=== PATIENT | male | born 1990 | race African-American/Black ===

== ENCOUNTER 2018-03-15 22:03 | Emergency (ER) | payer SELFPAY ==
[2018-03-15 23:05] VITALS: BP 137/92
[2018-03-16] MEDS ORDERED: IBUPROFEN 600 MG TABLET PO ONE (00:39)
[2018-03-16] MEDS ORDERED: DIPHENHYDRAMINE HCL 25 MG CAPSULE PO ONE (00:39)
--- NOTE | 2018-03-16 00:40 | ER Document Report ---
HPI - HPI Pain Level: 2 Context: Patient is a 27-year-old male who presents emerged department with a chief complaint of insect bite. Patient states that he felt either mosquito or a spider bit him in between his shoulder blades at the base of his neck. States that this started but earlier today. Otherwise he denies any rash, difficulty swallowing, difficulty breathing denies any known allergies - CONSTITUTIONAL Constitutional: DENIES: Fever, Chills - EENT EENT: DENIES: Sore Throat, Ear Pain, Eye problems - NEURO Neurology: DENIES: Headache, Weakness, Vision blurred, Dizzinesss / Vertigo - CARDIOVASCULAR Cardiovascular: DENIES: Chest pain - RESPIRATORY Respiratory: DENIES: Trouble Breathing, Coughing - GASTROINTESTINAL Gastrointestinal: DENIES: Abdominal Pain, Black / Bloody Stools - URINARY Urinary: DENIES: Dysuria, Urgency, Frequency - MUSCULOSKELETAL Musculoskeletal: DENIES: Extremity pain Past Medical History - Social History Smoking Status: Unknown if Ever Smoked Family History: Reviewed & Not Pertinent Patient has suicidal ideation: No Patient has homicidal ideation: No Renal/ Medical History: Denies: Hx Peritoneal Dialysis Vertical Provider Document - CONSTITUTIONAL Agree With Documented VS: Yes Notes: PHYSICAL EXAM GENERAL: Alert, interacts well. HEAD: Normocephalic, atraumatic. EYES: Pupils equal, round, and reactive to light. Extraocular movements intact. ENT: Oral mucosa moist, tongue midline. NECK: Full range of motion. Supple. Trachea midline. LUNGS: Clear to auscultation bilaterally, no wheezes, rales, or rhonchi. No respiratory distress. HEART: Regular rate and rhythm. No murmurs, gallops, or rubs. NEUROLOGICAL: Alert and oriented x4. Normal speech. PSYCH: Normal affect, normal mood. SKIN: Warm, dry, normal turgor. Patient has a small erythematous flat area on the posterior thoracic spine left of midline that is nontender, without induration or tenderness no evidence of a puncture wound or wheal. - INFECTION CONTROL TRAVEL OUTSIDE OF THE [place] IN LAST 30 DAYS: No Course - Re-evaluation Re-evalutation: 03/16/18 00:39 Patient presents after an insect bite. Presents as a localized mild reaction without any associated allergic reaction. There is no concern for infection at this time. Will treat with antihistamines and discharge patient home with strict return precautions and follow-up instructions - Vital Signs Vital signs: Temp Pulse Resp BP Pulse Ox 98.5 F 48 L 18 137/92 H 99 03/15/18 23:04 03/15/18 23:04 03/15/18 23:04 03/15/18 23:04 03/15/18 23:04 Discharge - Discharge Clinical Impression: Insect bite Qualifiers: Encounter type: initial encounter Qualified Code(s): W57.XXXA - Bitten or stung by nonvenomous insect and other nonvenomous arthropods, initial encounter Condition: Good Disposition: HOME, SELF-CARE Instructions: Insect Bites ([facility]), OTC Antihistamines ([facility]) Forms: Return to Work
== END 2018-03-16 00:46 | disposition home or self-care (01) ==
LOC: ER 22:03
DX: S10.96XA Insect bite of unspecified part of neck, initial encounter (principal); W57.XXXA Bitten or stung by nonvenomous insect and other nonvenomous arthropods, initial encounter
CPT/HCPCS: 99281

== ENCOUNTER 2018-07-31 07:57 | Inpatient (IN) | payer SELFPAY ==
[2018-07-31] MEDS ORDERED: NORMAL SALINE 1000 ML 1,000 ML IV ONE ×2 (08:31→10:12)
[2018-07-31] MEDS ORDERED: ONDANSETRON HCL INJ/PF 4 MG/2 ML SDV IV ONE (08:31)
--- NOTE | 2018-07-31 08:36 | ER Document Report ---
ED GI/ - General TRAVEL OUTSIDE OF THE [place] IN LAST 30 DAYS: No <EMMA AGUIRRE - Last Filed: 07/31/18 18:05> <KYLER ESCALERA - Last Filed: 07/31/18 18:39> - General Chief Complaint: Abdominal Pain Stated Complaint: ABDOMINAL PAIN Time Seen by Provider: 07/31/18 08:21 Notes: Patient is a 27-year-old male presenting to the emergency department complaining of umbilical abdominal pain. Patient states pain started last night along with vomiting x4 nonbloody nonbilious, diarrhea x2 also denying blood. Patient states he is unsure if the abdominal pain started first or the nausea vomiting diarrhea started first. Patient also admits to a subjective fever. Patient denies URI symptoms. Patient denies dysuria, penile discharge, redness or swelling to bilateral testicles. Patient denies chest pain, shortness of breath. Patient states he does not have a primary care provider and has not seen a doctor since he was a child. Past medical history none Medications none Allergies none Surgical history none (EMMA AGUIRRE) - Related Data Allergies/Adverse Reactions: No Known Allergies Allergy (Verified 07/31/18 08:00) Past Medical History - General Information source: Patient - Social History Smoking Status: Unknown if Ever Smoked Lives with: Family Family History: Reviewed & Not Pertinent Renal/ Medical History: Denies: Hx Peritoneal Dialysis <EMMA AGUIRRE - Last Filed: 07/31/18 18:05> Review of Systems - Review of Systems Constitutional: See HPI EENT: See HPI Cardiovascular: See HPI Respiratory: See HPI Gastrointestinal: See HPI Genitourinary: See HPI Male Genitourinary: See HPI Musculoskeletal: No symptoms reported Skin: No symptoms reported Hematologic/Lymphatic: No symptoms reported Neurological/Psychological: No symptoms reported <EMMA AGUIRRE - Last Filed: 07/31/18 18:05> Physical Exam <EMMA AGUIRRE - Last Filed: 07/31/18 18:05> <KLYER ESCALERA - Last Filed: 07/31/18 18:39> - Vital signs Vitals: Temp Pulse Resp BP Pulse Ox 97.4 F 82 18 143/95 H 100 07/31/18 08:01 07/31/18 08:01 07/31/18 08:01 07/31/18 08:01 07/31/18 08:01 - Notes Notes: GENERAL: Alert, interacts well. No acute distress. HEAD: Normocephalic, atraumatic. EYES: Pupils equal, round, and reactive to light. Extraocular movements intact. ENT: Oral mucosa moist, tongue midline. NECK: Full range of motion. Supple. Trachea midline. LUNGS: Clear to auscultation bilaterally, no wheezes, rales, or rhonchi. No respiratory distress. HEART: Regular rate and rhythm. No murmur ABDOMEN: Soft, Non-distended. Bowel sounds present in all 4 quadrants. Generalized pain periumbilical and epigastric. No Mitchell sign, no McBurney's point tenderness. Bilateral testicles non-erythematous, nonswollen, nonpainful. Penis circumcised no active discharge at meatus. EXTREMITIES: Moves all 4 extremities spontaneously. No edema, normal radial and dorsalis pedis pulses bilaterally. No cyanosis. BACK: no cervical, thoracic, lumbar midline tenderness. No saddle anesthesia, normal distal neurovascular exam. No CVA tenderness bilaterally. NEUROLOGICAL: Alert and oriented x3. Normal speech. cranial nerves II through XII grossly intact. PSYCH: Normal affect, normal mood. SKIN: Warm, dry, normal turgor. No rashes or lesions noted. (EMMA AGUIRRE) Course - Laboratory Result Diagrams: 07/31/18 08:45 07/31/18 09:30 <EMMA AGUIRRE - Last Filed: 07/31/18 18:05> - Laboratory Result Diagrams: 07/31/18 08:45 07/31/18 09:30 <KYLER ESCALERA - Last Filed: 07/31/18 18:39> - Re-evaluation Re-evalutation: 07/31/18 10:12 Reviewed patient's labs, elevation in kidney function, will give another liter fluid bolus. Upon abdominal reevaluation patient now has pain right upper quadrant, positive Mitchell sign. Patient continues with no McBurney's point tenderness, no left lower abdominal pain, no CVA tenderness. patient states he has not vomited since arrival to the emergency room but is still 10 out of 10 pain. 07/31/18 10:55 Patient was about to be brought to ultrasound when he requested to speak to me. Patient now states his pain is more umbilical and right lower quadrant. Patient states he is also having pain in his lower back. Patient continues to deny dysuria, hematuria or history of kidney stones. Patient also denying pain in his groin. Upon abdominal reexam patient does in fact have positive McBurney 's point tenderness. Patient no longer has Mitchell sign. Discussed with patient at that time use of CT for imaging modality. Patient states he wishes for a CT and does not want to do an ultrasound anymore. Discussed the radiation risks as well and patient continues to state he wants a CT. 07/31/18 12:[address], labs and UA with Dr. Luis Escalera who suggests admission for acute renal failure, perinephric stranding, proteinuria, hematuria. Due to [place] not having nephrology, recommends transfer to [facility] or [facility]. Discussed options with patient who requests transfer to [facility]. 07/31/18 13:[address] Carroll Anders at [facility] who stated should the patient be transferred to [facility] he would not get a nephrology consult. States I should discuss this case with the admitting physician at [facility] for admission. 07/31/18 13:[address] Dk Hines who agrees patient should be admitted for acute renal failure. Will see patient in emergency department. Patient states his pain has since resolved. Current heart rate 60, blood pressure 128/84, respiratory rate 14, SPO2 100% on room air no work of breathing. (EMMA AGUIRRE) 07/31/18 18:38 I independently evaluated this patient. He was resting comfortably and in no acute distress. Patient's lab work showed acute renal failure and he had perinephric stranding on CT scan. Patient has no history of renal failure in the past. Patient's urinalysis was negative for infection. The CT results were concerning for a new nephropathy. Because we did not have a hazardous substances scientist on-call I recommended consulting at an outside facility. [facility] did not feel patient needed a nephrology evaluation. Case was also discussed with Dr. Hines who is comfortable admitting the patient for further evaluation of his renal failure which may be related to his persistent vomiting. Patient admitted in stable condition (KYLER ESCALERA) - Vital Signs Vital signs: Temp Pulse Resp BP Pulse Ox 98.5 F 59 L 12 135/94 H 100 07/31/18 18:19 07/31/18 18:19 07/31/18 18:19 07/31/18 18:19 07/31/18 18:19 - Laboratory Laboratory results interpreted by me: 07/31/18 07/31/18 07/31/18 08:45 09:30 09:30 WBC 13.7 H MCV 99 H RDW 14.3 H Seg Neuts % (Manual) 90 H Lymphocytes % (Manual) 5 L Abs Neuts (Manual) 12.3 H Creatinine 1.94 H Est GFR ( Amer) 51 L Est GFR (Non-Af Amer) 42 L ALT 20 L Creatine Kinase 2593 H Total Protein 6.2 L Urine Protein Urine Blood Protein/Creatinin Ratio Urine Total Protein 07/31/18 07/31/18 09:54 09:54 WBC MCV RDW Seg Neuts % (Manual) Lymphocytes % (Manual) Abs Neuts (Manual) Creatinine Est GFR ( Amer) Est GFR (Non-Af Amer) ALT Creatine Kinase Total Protein Urine Protein 100 H Urine Blood SMALL H Protein/Creatinin Ratio 1.7 H Urine Total Protein 74.2 H Discharge - Discharge Admitting Provider: Hospitalist - Dr. Root Onime Unit Admitted: Medical Floor <EMMA AGUIRRE - Last Filed: 07/31/18 18:05> <KYLER ESCALERA - Last Filed: 07/31/18 18:39> - Discharge Clinical Impression: Acute renal injury Proteinuria Qualifiers: Proteinuria type: isolated Isolated proteinuria type: without specific morphologic lesion Qualified Code(s): R80.0 - Isolated proteinuria Hematuria Qualifiers: Hematuria type: unspecified type Qualified Code(s): R31.9 - Hematuria, unspecified Vomiting Qualifiers: Vomiting type: unspecified Vomiting Intractability: non-intractable Nausea presence: with nausea Qualified Code(s): R11.2 - Nausea with vomiting, unspecified Diarrhea Qualifiers: Diarrhea type: unspecified type Qualified Code(s): R19.7 - Diarrhea, unspecified Condition: Stable Disposition: ADMITTED INPATIENT
[2018-07-31 09:06] LABS: HEMATOCRIT 45.4 % (37.9-51.0); HEMOGLOBIN 15.3 g/dL (13.5-17.0); MEAN CORPUSCULAR HGB CONC 33.6 g/dL (32.0-36.0); MEAN CORPUSCULAR VOLUME 99 fl (80-97); PLATELET COUNT 200 10^3/uL (150-450); RED BLOOD COUNT 4.61 10^6/uL (4.35-5.55); RED CELL DISTRIBUTION WIDTH 14.3 % (11.5-14.0); WHITE BLOOD COUNT 13.7 10^3/uL (4.0-10.5)
[2018-07-31 09:25] LABS: ABSOLUTE LYMPHOCYTES# (MANUAL) 0.7 10^3/uL (0.5-4.7); ABSOLUTE MONOCYTES # (MANUAL) 0.7 10^3/uL (0.1-1.4); ABSOLUTE NEUTROPHILS# (MANUAL) 12.3 10^3/uL (1.7-8.2); BASOPHILS % (MANUAL) 0 % (0-2); EOSINOPHILS % (MANUAL) 0 % (0-6); LYMPHOCYTES % (MANUAL) 5 % (13-45); MONOCYTES % (MANUAL) 5 % (3-13); PLATELET COMMENT ADEQUATE; RBC MORPHOLOGY COMMENT NORMO-CYTIC/CHROMIC; SEGMENTED NEUTROPHILS % (MAN) 90 % (42-78); TOTAL CELLS COUNTED 100
[2018-07-31 10:04] LABS: ALANINE AMINOTRANSFERASE 20 U/L (21-72); ALBUMIN 3.9 g/dL (3.5-5.0); ALKALINE PHOSPHATASE 55 U/L (38-126); ANION GAP 14 (5-19); ASPARTATE AMINO TRANSFERASE 43 U/L (17-59); BILIRUBIN,DIRECT 0.2 mg/dL (0.0-0.4); BILIRUBIN,TOTAL 1.1 mg/dL (0.2-1.3); BLOOD UREA NITROGEN 13 mg/dL (7-20); CALCIUM 8.8 mg/dL (8.4-10.2); CARBON DIOXIDE 22 mmol/L (22-30); CHLORIDE 104 mmol/L (98-107); GLUCOSE 84 mg/dL (75-110); LIPASE 39.1 U/L (23-300); POTASSIUM 4.3 mmol/L (3.6-5.0); SODIUM 139.6 mmol/L (137-145); TOTAL PROTEIN 6.2 g/dL (6.3-8.2)
[2018-07-31] MEDS ORDERED: KETOROLAC TROMETHAMINE INJ/PF 30 MG/1 ML SDV IV ONE (10:15)
[2018-07-31 10:26] LABS: APPEARANCE,URINE CLEAR; BILIRUBIN,URINE NEGATIVE (NEGATIVE); COLOR,URINE STRAW; GLUCOSE, URINE NEGATIVE (NEGATIVE); KETONES,URINE NEGATIVE (NEGATIVE); LEUKOCYTE ESTERASE,URINE NEGATIVE (NEGATIVE); NITRITE,URINE NEGATIVE (NEGATIVE); PROTEIN,URINE 100 mg/dL (NEGATIVE); URINE SPECIFIC GRAVITY 1.004; UROBILINOGEN,URINE NEGATIVE mg/dL (<2.0)
[2018-07-31] MEDS ORDERED: METOCLOPRAMIDE HCL INJ/PF 10 MG/2 ML SDV IV ONE (11:26)
--- NOTE | 2018-07-31 12:10 | RADIOLOGY REPORT (SQ) ---
EXAM DESCRIPTION: CT ABD/PELVIS WITH IV ONLY COMPLETED DATE/TIME: 07/31/2018 11:51 am REASON FOR STUDY: Vomiting, periumbilical abdominal pain COMPARISON: None. TECHNIQUE: CT scan of the abdomen and pelvis performed using helical scanning technique with dynamic intravenous contrast injection. No oral contrast. Images reviewed with lung, soft tissue, and bone windows. Reconstructed coronal and sagittal MPR images reviewed. Delayed images for evaluation of the urinary system also acquired. All images stored on PACS. All CT scanners at this facility use dose modulation, iterative reconstruction, and/or weight based d osing when appropriate to reduce radiation dose to as low as reasonably achievable (ALARA). [facility]: Dose Right [facility]: CareDose [facility]: Dose Right [facility]: Teradose 4D [facility]: [id number] CONTRAST TYPE AND DOSE: contrast/concentration: Isovue 300.00 mg/ml; Total Contrast Delivered: 50.0 ml; Total Saline Delivered: 68.0 ml 15 mL IV of Omnipaque 300- low osmolar. RENAL FUNCTION: BUN 13 creatinine 1.94 RADIATION DOSE: . LIMITATIONS: Suboptimal timing of contrast bolus. FINDINGS: LOWER CHEST: No significant findings. No nodules or infiltrates. LIVER: Normal size. No masses. No dilated ducts. SPLEEN: Normal size. No focal lesions. PANCREAS: No masses. No significant calcifications. No adjacent inflammation or peripancreatic fluid collections. Pancreatic duct not dilated. GALLBLADDER: No identified stones by CT criteria. No inflammatory changes to suggest cholecystitis. ADRENAL GLANDS: No significant masses or asymmetry. RIGHT KIDNEY AND URETER: Perinephric fat stranding. No solid masses. No significant calcification s. No hydronephrosis or hydroureter. Contrast is seen opacifying the right ureter on delayed image s without filling defects. LEFT KIDNEY AND URETER: Perinephric fat stranding. No solid masses. No significant calcifications . No hydronephrosis or hydroureter. A small amount of contrast is seen opacifying the proximal lef t ureter on delayed images without filling defects of the opacified portion. AORTA AND VESSELS: No aneurysm. No dissection. Renal arteries, SMA, celiac without stenosis. RETROPERITONEUM: No retroperitoneal adenopathy, hemorrhage or masses. BOWEL AND PERITONEAL CAVITY: No masses or inflammatory changes. No free fluid or peritoneal masses. APPENDIX: Normal. PELVIS: No mass. No free fluid. Normal bladder. ABDOMINAL WALL: No masses. No hernias. BONES: No significant or acute findings. OTHER: No other significant finding. IMPRESSION: Symmetric bilateral perinephric fat stranding which may represent pyelonephritis, amongs t other etiologies. Correlate clinically. TECHNICAL DOCUMENTATION: JOB ID: [id number] Quality ID # [id number]: Final reports with documentation of one or more dose reduction techniques (e.g., Au tomated exposure control, adjustment of the mA and/or kV according to patient size, use of iterative reconstruction technique) 2010 [employer]- All Rights Reserved Reading location - IP/workstation name: [email or web address]
[2018-07-31] MEDS ORDERED: IPRATROPIUM/ALBUTEROL 0.5-2.5 MG/3 ML AMPUL NEB PRN (14:18)
[2018-07-31] MEDS ORDERED: NORMAL SALINE 1000 ML 1,000 ML IV PRN (14:18)
[2018-07-31] MEDS ORDERED: ACETAMINOPHEN 650 MG SUPP.RECT PR PRN (14:18)
[2018-07-31] MEDS ORDERED: PROMETHAZINE HCL 25 MG SUPP.RECT PR PRN (14:29)
[2018-07-31] MEDS ORDERED: DEXTROSE 50%-WATER 25 GM/50 ML DISP.SYRIN IV PRN ×2 (14:29)
[2018-07-31] MEDS ORDERED: ONDANSETRON HCL INJ/PF 4 MG/2 ML SDV IV PRN (14:29)
[2018-07-31] MEDS ORDERED: DEXTROSE 40% GEL 15 GM TUBE PO PRN ×2 (14:29)
[2018-07-31] MEDS ORDERED: MAG HYDROX/AL HYDROX/SIMETH SUSP 30 ML UDCUP PO PRN (14:29)
[2018-07-31] MEDS ORDERED: GLUCAGON,HUMAN RECOMB 1 MG INJ SUBCUT PRN (14:29)
--- NOTE | 2018-07-31 14:49 | PDOC H&P ---
History of Present Illness Admission Date/PCP: 07/31/18 13:59 History of Present Illness: UMU CARDENAS is a 27 year old male without significant past medical history who presented to the emergency department today with a complaint of nausea, vomiting, diarrhea beginning at 7 PM last night. He reports that he felt well yesterday afternoon, no sick contacts, no suspicious foods. He reports that he has had 2 episodes of diarrhea and several episodes of emesis; stating is unable to tolerate p.o. fluids at this time. He reports subjective fever, but did not take his temperature. He reports right lower back pain; indicating the sacroiliac joint with his hand. Evaluation in the emergency department reveals mild leukocytosis with a WBC of 13.7, LARRY (Cr 1.94, BUN 13, eGFR 51), and CT ABD/Pelvis demonstrating symmetric bilateral perinephric fat stranding; no stones or hydronephrosis observed. He is referred to the hospitalist for observational admission and management of LARRY. Past Medical History Cardiac Medical History: Reports: None Pulmonary Medical History: Reports: None EENT Medical History: Reports: None Neurological Medical History: Reports: None Endocrine Medical History: Reports: None Renal/ Medical History: Reports: None Malignancy Medical History: Reports: None GI Medical History: Reports: None Musculoskeltal Medical History: Reports: None Skin Medical History: Reports: None Psychiatric Medical History: Reports: Tobacco Dependency Traumatic Medical History: Reports: None Hematology: Reports: None Infectious Medical History: Reports: None Past Surgical History Past Surgical History: Reports: None Social History Information Source: Patient Lives with: Family Smoking Status: Current Every Day Smoker Cigarettes Packs Per Day: 0.5 Frequency of Alcohol Use: Occasional Hx Recreational Drug Use: No Hx Prescription Drug Abuse: No - Advance Directive Resuscitation Status: Full Code Surrogate healthcare decision maker:: The patient's mother. Family History Family History: None, Reviewed & Not Pertinent Parental Family History Reviewed: Yes Children Family History Reviewed: Yes Sibling(s) Family History Reviewed.: Yes Medication/Allergy Allergies/Adverse Reactions: No Known Allergies Allergy (Verified 07/31/18 08:00) Review of Systems Constitutional: ABSENT: chills, fever(s), headache(s), weight gain, weight loss Eyes: ABSENT: visual disturbances Ears: ABSENT: hearing changes Cardiovascular: ABSENT: chest pain, dyspnea on exertion, edema, orthropnea, palpitations Respiratory: ABSENT: cough, hemoptysis Gastrointestinal: PRESENT: abdominal pain, nausea, vomiting. ABSENT: constipation, diarrhea, hematemesis, hematochezia Genitourinary: ABSENT: dysuria, hematuria Musculoskeletal: PRESENT: back pain. ABSENT: joint swelling Integumentary: ABSENT: rash, wounds Neurological: ABSENT: abnormal gait, abnormal speech, confusion, dizziness, focal weakness, syncope Psychiatric: ABSENT: anxiety, depression, homidical ideation, suicidal ideation Endocrine: ABSENT: cold intolerance, heat intolerance, polydipsia, polyuria Hematologic/Lymphatic: ABSENT: easy bleeding, easy bruising Physical Exam Vital Signs: Temp Pulse Resp BP Pulse Ox 97.4 F 82 13 128/84 H 98 07/31/18 08:01 07/31/18 08:01 07/31/18 13:01 07/31/18 13:01 07/31/18 13:01 General appearance: PRESENT: no acute distress, well-developed, well-nourished Head exam: PRESENT: atraumatic, normocephalic Eye exam: PRESENT: conjunctiva pink, EOMI, PERRLA. ABSENT: scleral icterus Ear exam: PRESENT: normal external ear exam Mouth exam: PRESENT: moist, tongue midline Neck exam: ABSENT: carotid bruit, JVD, lymphadenopathy, thyromegaly Respiratory exam: PRESENT: clear to auscultation michelle, symmetrical, unlabored. ABSENT: rales, rhonchi, wheezes Cardiovascular exam: PRESENT: RRR, +S1, +S2. ABSENT: diastolic murmur, rubs, systolic murmur Pulses: PRESENT: normal dorsalis pedis pul Vascular exam: PRESENT: normal capillary refill GI/Abdominal exam: PRESENT: normal bowel sounds, soft, tenderness - Periumbilical and epigastric pain.. ABSENT: distended, guarding, mass, organolmegaly, rebound Rectal exam: PRESENT: deferred Extremities exam: PRESENT: full ROM. ABSENT: calf tenderness, clubbing, pedal edema Neurological exam: PRESENT: alert, awake, oriented to person, oriented to place , oriented to time, oriented to situation, CN II-XII grossly intact. ABSENT: motor sensory deficit Psychiatric exam: PRESENT: appropriate affect, normal mood. ABSENT: homicidal ideation, suicidal ideation Skin exam: PRESENT: dry, intact, warm. ABSENT: cyanosis, rash Results Impressions: Abdomen/Pelvis CT 07/31/18 10:55 IMPRESSION: Symmetric bilateral perinephric fat stranding which may represent pyelonephritis, amongst other etiologies. Correlate clinically. Assessment & Plan - Diagnosis (1) Acute renal injury Is this a current diagnosis for this admission?: Yes Plan: The patient presented with a complaint of 1 day of nausea vomiting and diarrhea. Reports that he is intolerant of p.o. fluids at this time. Creatinine was noted to be elevated to 1.94; no known baseline. Unlikely to be prerenal as his BUN is normal at 13, blood pressures are normal, not tachycardic, and appears euvolemic on exam. CT of the abdomen and pelvis revealed bilateral perinephric stranding without stones or hydronephrosis; no other acute findings. Creatinine kinase, urine creatinine, urine sodium are pending. Serum EtOH and urine drug screen pending. The patient is admitted to the medical floor. He is already received 2 L IV fluid bolus. He is placed on continued IV maintenance fluids. N.p.o. with the exception of ice chips. Antiemetics as needed. (2) Diarrhea Qualifiers: Diarrhea type: unspecified type Qualified Code(s): R19.7 - Diarrhea, unspecified Is this a current diagnosis for this admission?: Yes Plan: Patient reports 2 episodes of diarrhea overnight. He denies infectious contacts or suspicious foods. Will obtain stool culture. Supportive care. (3) Vomiting Qualifiers: Vomiting type: unspecified Vomiting Intractability: non-intractable Nausea presence: with nausea Qualified Code(s): R11.2 - Nausea with vomiting, unspecified Is this a current diagnosis for this admission?: Yes Plan: The patient reports onset of nausea with vomiting 7 PM last night. He states he is no longer tolerating p.o. fluids, however, immediately follows up with asking to eat. He denies sick contacts or suspicious meals. He does report subjective fever. He has been afebrile since time of arrival to the emergency department. WBCs mildly elevated at 13.7. Lipase and LFTs are normal. Serum EtOH and urine drug screen is pending. NPO with the exception of ice chips. IV fluids and antiemetics as described above. - Time Time Spent: 30 to 50 Minutes Medications reviewed and adjusted accordingly: Yes Anticipated discharge: Home Within: within 24 hours
[2018-07-31 14:52] LABS: URINE AMPHETAMINES SCREEN NEGATIVE; URINE BARBITURATES SCREEN NEGATIVE; URINE BENZODIAZEPINES SCREEN NEGATIVE; URINE COCAINE SCREEN UNCONFIRMED POSITIVE; URINE MARIJUANA (THC) SCREEN NEGATIVE; URINE METHADONE SCREEN NEGATIVE; URINE PHENCYCLIDINE SCREEN NEGATIVE
[2018-07-31 14:54] LABS: UR PRO/CREAT RATIO RESULT 1.7 mg/mg (0.0-0.2); URINE CREATININE 43.6 mg/dL (24-392); URINE PROTEIN 74.2 mg/dL (<12); URINE SODIUM 64 mmol/L (30-90)
[2018-07-31] MEDS: NICOTINE 14 MG/24 HR PATCH.TD24 TD SCH (18:32)
[2018-07-31] MEDS: ACETAMINOPHEN 325 MG TABLET PO PRN (21:13)
[2018-07-31] MEDS: HEPARIN SOD (PORCINE) 5,000 UNIT/ML 1 ML SYRINGE SUBCUT SCH (21:14)
[2018-08-01] MEDS: ACETAMINOPHEN 325 MG TABLET PO PRN (05:14)
[2018-08-01] MEDS: HEPARIN SOD (PORCINE) 5,000 UNIT/ML 1 ML SYRINGE SUBCUT SCH ×3 (05:16→21:09)
[2018-08-01 06:33] LABS: HEMOGLOBIN 13.7 g/dL (13.5-17.0); MEAN CORPUSCULAR HEMOGLOBIN 33.5 pg (27.0-33.4); MEAN CORPUSCULAR HGB CONC 34.1 g/dL (32.0-36.0); MEAN CORPUSCULAR VOLUME 98 fl (80-97); PLATELET COUNT 153 10^3/uL (150-450); RED BLOOD COUNT 4.07 10^6/uL (4.35-5.55); RED CELL DISTRIBUTION WIDTH 14.1 % (11.5-14.0); WHITE BLOOD COUNT 7.3 10^3/uL (4.0-10.5)
[2018-08-01 06:51] LABS: ANION GAP 9 (5-19); BLOOD UREA NITROGEN 14 mg/dL (7-20); CALCIUM 8.3 mg/dL (8.4-10.2); CARBON DIOXIDE 22 mmol/L (22-30); CHLORIDE 111 mmol/L (98-107); GLUCOSE 82 mg/dL (75-110); POTASSIUM 4.4 mmol/L (3.6-5.0); SODIUM 141.6 mmol/L (137-145)
[2018-08-01] MEDS: NICOTINE 14 MG/24 HR PATCH.TD24 TD SCH (09:46)
[2018-08-01] MEDS: PANTOPRAZOLE SODIUM 40 MG VIAL IV SCH (09:46)
[2018-08-01] MEDS: NORMAL SALINE 1000 ML 1,000 ML IV PRN ×2 (12:07→18:52)
--- NOTE | 2018-08-01 15:13 | PDOC PROGRESS REPORT ---
Subjective Progress Note for:: 08/01/18 Subjective:: The patient is a 27-year-old male with a past medical history significant for substance and tobacco abuse with continuous use who was admitted 07/31/18 for rhabdomyolysis, acute kidney injury, nausea and vomiting, secondary to cocaine use. He was seen on morning rounds. He has been resting in bed comfortably on room air. His significant other was asked to leave the room for our conversation. After she left, we discussed his UDS; he did admit to recent cocaine use. He reports continued generalized body aches, however reports that his abdominal discomfort, nausea, vomiting, and diarrhea have all resolved. He requests to have his diet advanced. Otherwise, he has no questions or concerns. No concerns per nursing; requested increased monitoring for strict I&Os Reason For Visit: ACUTE KIDNEY INJURY Physical Exam Vital Signs: Temp Pulse Resp BP Pulse Ox 98.6 F 52 L 16 123/84 100 08/01/18 12:19 08/01/18 12:19 08/01/18 12:19 08/01/18 12:19 08/01/18 12:19 Intake & Output 07/31/18 08/01/18 08/02/18 06:59 06:59 06:59 Intake Total 860 1000 Output Total 825 Balance 35 1000 General appearance: PRESENT: no acute distress, cooperative, thin, well- developed, well-nourished Head exam: PRESENT: atraumatic, normocephalic Eye exam: PRESENT: conjunctiva pink, EOMI, PERRLA. ABSENT: scleral icterus Ear exam: PRESENT: normal external ear exam Mouth exam: PRESENT: moist, tongue midline Neck exam: ABSENT: carotid bruit, JVD, lymphadenopathy, thyromegaly Respiratory exam: PRESENT: clear to auscultation michelle, symmetrical, unlabored. ABSENT: rales, rhonchi, wheezes Cardiovascular exam: PRESENT: RRR, +S1, +S2. ABSENT: diastolic murmur, rubs, systolic murmur Pulses: PRESENT: normal dorsalis pedis pul Vascular exam: PRESENT: normal capillary refill GI/Abdominal exam: PRESENT: normal bowel sounds, soft. ABSENT: distended, guarding, mass, organolmegaly, rebound, tenderness Rectal exam: PRESENT: deferred Extremities exam: PRESENT: full ROM. ABSENT: calf tenderness, clubbing, pedal edema Neurological exam: PRESENT: alert, awake, oriented to person, oriented to place , oriented to time, oriented to situation, CN II-XII grossly intact. ABSENT: motor sensory deficit Psychiatric exam: PRESENT: appropriate affect, normal mood. ABSENT: homicidal ideation, suicidal ideation Skin exam: PRESENT: dry, intact, warm. ABSENT: cyanosis, rash Results Laboratory Results: 08/01/18 05:20 08/01/18 05:20 08/01/18 08/01/18 05:20 05:20 WBC 7.3 RBC 4.07 L Hgb 13.7 Hct 40.0 MCV 98 H MCH 33.5 H MCHC 34.1 RDW 14.1 H Plt Count 153 Sodium 141.6 Potassium 4.4 Chloride 111 H Carbon Dioxide 22 Anion Gap 9 BUN 14 Creatinine 3.21 H Est GFR ( Amer) 29 L Est GFR (Non-Af Amer) 24 L Glucose 82 Calcium 8.3 L 08/01/18 08/01/18 05:20 09:52 Creatine Kinase Cancelled 3890 H Impressions: Abdomen/Pelvis CT 07/31/18 10:55 IMPRESSION: Symmetric bilateral perinephric fat stranding which may represent pyelonephritis, amongst other etiologies. Correlate clinically. Assessment & Plan - Diagnosis (1) Acute renal failure due to rhabdomyolysis Is this a current diagnosis for this admission?: Yes Plan: Worsened; creatinine is trending up 1.94--> 3.21 Secondary to ATN secondary to cocaine abuse and subsequent development of rhabdomyolysis. CT of the abdomen and pelvis revealed bilateral perinephric stranding without stones or hydronephrosis; no other acute findings. FeNA 2.0%, urine protein/creatinine ratio 1.7 Serum EtOH negative, urine drug screen positive for cocaine. Pt endorses recent use. The patient is admitted to the medical floor. Continue aggressive IV maintenance fluids. Encourage p.o. fluids. Avoid nephrotoxic medications as able. Antiemetics as needed. Daily chemistries. Strict I&Os; discussed with patient and nursing. (2) Diarrhea Qualifiers: Diarrhea type: unspecified type Qualified Code(s): R19.7 - Diarrhea, unspecified Is this a current diagnosis for this admission?: Yes Plan: Resolved. Supportive care. (3) Vomiting Qualifiers: Vomiting type: unspecified Vomiting Intractability: non-intractable Nausea presence: with nausea Qualified Code(s): R11.2 - Nausea with vomiting, unspecified Is this a current diagnosis for this admission?: Yes Plan: Resolved. Leukocytosis is resolved; patient remains afebrile. Lipase and LFTs are normal. He has tolerated a clear liquid diet well; advance to brat. May advance further as tolerated. IV fluids and antiemetics as described above. (4) Rhabdomyolysis Qualifiers: Rhabdomyolysis type: non-traumatic Qualified Code(s): M62.82 - Rhabdomyolysis Is this a current diagnosis for this admission?: Yes Plan: Secondary to cocaine use and resulting in acute kidney injury. Creatinine kinase trending up 2593--> 3890 Rest. Aggressive IV fluids. Daily chemistries. (5) Substance abuse Is this a current diagnosis for this admission?: Yes Plan: The patient was evasive when providing his social history; did admit to 1/2 pack /day tobacco use, occasional EtOH abuse (last drink approximately 2 months ago) , and rare THC use. Today he does confirm recent cocaine use. UDS positive for cocaine. Supportive care. (6) Continuous tobacco abuse Is this a current diagnosis for this admission?: Yes Plan: Smoking cessation is encouraged; nicotine replacement therapies are provided. (7) ATN (acute tubular necrosis) Is this a current diagnosis for this admission?: Yes Plan: Secondary to cocain use; plan as above. - Time Time Spent with patient: 15-24 minutes Medications reviewed and adjusted accordingly: Yes Anticipated discharge: Home - Inpatient Certification Based on my medical assessment, after consideration of the patient's comorbidities, presenting symptoms, or acuity I expect that the services needed warrant INPATIENT care.: Yes I certify that my determination is in accordance with my understanding of Medicare's requirements for reasonable and necessary INPATIENT services [42 CFR 412.3e].: Yes Medical Necessity: Need For IV Fluids, Risk of Complication if Not Cared For in Hospital
[2018-08-02] MEDS: NORMAL SALINE 1000 ML 1,000 ML IV PRN ×2 (00:21→11:24)
[2018-08-02] MEDS: HEPARIN SOD (PORCINE) 5,000 UNIT/ML 1 ML SYRINGE SUBCUT SCH ×3 (05:06→21:27)
[2018-08-02 05:17] LABS: HEMATOCRIT 36.5 % (37.9-51.0); HEMOGLOBIN 12.5 g/dL (13.5-17.0); MEAN CORPUSCULAR HEMOGLOBIN 33.5 pg (27.0-33.4); MEAN CORPUSCULAR HGB CONC 34.1 g/dL (32.0-36.0); MEAN CORPUSCULAR VOLUME 98 fl (80-97); PLATELET COUNT 134 10^3/uL (150-450); RED BLOOD COUNT 3.72 10^6/uL (4.35-5.55); RED CELL DISTRIBUTION WIDTH 14.2 % (11.5-14.0); WHITE BLOOD COUNT 4.5 10^3/uL (4.0-10.5)
[2018-08-02 05:45] LABS: ANION GAP 9 (5-19); BLOOD UREA NITROGEN 13 mg/dL (7-20); CALCIUM 8.2 mg/dL (8.4-10.2); CARBON DIOXIDE 20 mmol/L (22-30); CHLORIDE 114 mmol/L (98-107); GLUCOSE 82 mg/dL (75-110); POTASSIUM 4.3 mmol/L (3.6-5.0); SODIUM 142.8 mmol/L (137-145)
[2018-08-02 05:55] LABS: CREATINE KINASE 2719 U/L (55-170)
[2018-08-02] MEDS: PANTOPRAZOLE SODIUM 40 MG VIAL IV SCH (11:05)
[2018-08-02] MEDS: NICOTINE 14 MG/24 HR PATCH.TD24 TD SCH (11:15)
[2018-08-02] MEDS: ACETAMINOPHEN 325 MG TABLET PO PRN (11:18)
--- NOTE | 2018-08-02 12:46 | PDOC PROGRESS REPORT ---
Subjective Progress Note for:: 08/02/18 Subjective:: No adverse events overnight. No new complaints. Vital signs been stable. Urine output has been excellent. He asked if his diet could be changed to a regular diet. He was up ambulating in the room independently. Reason For Visit: ACUTE KIDNEY FAILURE Physical Exam Vital Signs: Temp Pulse Resp BP Pulse Ox 98.7 F 61 12 141/98 H 99 08/02/18 07:53 08/02/18 07:53 08/02/18 07:53 08/02/18 07:53 08/02/18 07:53 Intake & Output 08/01/18 08/02/18 08/03/18 06:59 06:59 06:59 Intake Total 2000 1000 Output Total 1275 Balance 725 1000 General appearance: PRESENT: no acute distress, cooperative, thin, well- developed, well-nourished Respiratory exam: PRESENT: clear to auscultation michelle, symmetrical, unlabored. ABSENT: rales, rhonchi, wheezes Cardiovascular exam: PRESENT: RRR, +S1, +S2. ABSENT: diastolic murmur, rubs, systolic murmur Pulses: PRESENT: normal dorsalis pedis pul Vascular exam: PRESENT: normal capillary refill GI/Abdominal exam: PRESENT: normal bowel sounds, soft. ABSENT: distended, guarding, mass, organolmegaly, rebound, tenderness Extremities exam: PRESENT: full ROM. ABSENT: calf tenderness, clubbing, pedal edema Neurological exam: PRESENT: alert, awake, oriented to person, oriented to place , oriented to time, oriented to situation Psychiatric exam: PRESENT: appropriate affect, normal mood. ABSENT: homicidal ideation, suicidal ideation Skin exam: PRESENT: dry, intact, warm. ABSENT: cyanosis, rash Results Laboratory Results: 08/02/18 04:45 08/02/18 04:45 08/02/18 08/02/18 04:45 04:45 WBC 4.5 RBC 3.72 L Hgb 12.5 L Hct 36.5 L MCV 98 H MCH 33.5 H MCHC 34.1 RDW 14.2 H Plt Count 134 L Sodium 142.8 Potassium 4.3 Chloride 114 H Carbon Dioxide 20 L Anion Gap 9 BUN 13 Creatinine 2.78 H Est GFR ( Amer) 34 L Est GFR (Non-Af Amer) 28 L Glucose 82 Calcium 8.2 L 08/02/18 04:45 Creatine Kinase 2719 H Impressions: Abdomen/Pelvis CT 07/31/18 10:55 IMPRESSION: Symmetric bilateral perinephric fat stranding which may represent pyelonephritis, amongst other etiologies. Correlate clinically. Assessment & Plan - Diagnosis (1) Acute renal failure due to rhabdomyolysis Is this a current diagnosis for this admission?: Yes Plan: Associated with cocaine use. He is responded well to IV fluids. Creatinine and CPK are both trending down. Continue IV fluids and repeat blood work in the morning. (2) Substance abuse Is this a current diagnosis for this admission?: Yes Plan: Counseled regarding cessation. Declined substance abuse recovery information. - Time Time Spent with patient: 25-34 minutes
[2018-08-03] MEDS: NORMAL SALINE 1000 ML 1,000 ML IV PRN ×2 (03:16→14:06)
[2018-08-03] MEDS: HEPARIN SOD (PORCINE) 5,000 UNIT/ML 1 ML SYRINGE SUBCUT SCH ×3 (05:13→21:26)
--- NOTE | 2018-08-03 11:31 | PROGRESS NOTE E ---
Progress Note NAME: UMU CARDENAS : 1990 AGE: 27Y DATE: 08/03/2018 ROOM: 404 SUBJECTIVE: The patient is currently sitting up in bed. He states that he feels better today in comparison to when he came in. He denies any nausea, vomiting, diarrhea. No shortness of breath, dizziness, or chest pain. No fevers, chills. The patient has been afebrile. Blood pressure has been in a good range. The patient does not voice any other concerns at this time. REVIEW OF SYSTEMS: Rest of review of systems negative. MEDICATIONS: Medications have been reviewed. OBJECTIVE: GENERAL: The patient is a 27-year-old -[place] male who is awake, alert, and oriented to person, place, time, and situation. He is verbal, conversational, does not appear to be in acute distress. VITAL SIGNS: Temperature is 98.2, pulse 46, respirations 16, blood pressure is 149/100, oxygen saturation is 100% on room air. SKIN: Warm and dry. No rash. Not diaphoretic. HEENT: Pupils are reactive. There is no evidence of JVP. CARDIOVASCULAR SYSTEM: Heart is regular. There is no rub. CHEST: Clear, symmetrical, unlabored. ABDOMEN: Nondistended. EXTREMITIES: No cyanosis. No edema. PSYCHIATRIC: Appropriate affect. Pleasant mood. DIAGNOSTICS: Lab values are as follows: Hematology obtained on 08/02/2018: WBCs are 4.5, hemoglobin is 12.5, hematocrit 36.5, platelet count is 134,000. IMPRESSION AND PLAN: 1. RHABDOMYOLYSIS. Will continue to hydrate and repeat CK and follow. 2. ACUTE KIDNEY INJURY SECONDARY TO NUMBER 1 WELL COCAINE USE. Will continue to aggressively hydrate and follow. 3. COCAINE TOXICITY. Patient may have had a renal infraction. Will continue to follow the patient's creatinine and aggressively hydrate. Patient is making excellent urine output and appears to be overall improving. Will monitor labs closely and follow. 4. TOBACCO DEPENDENCY. Continue p.r.n. nicotine patch. 5. SUBSTANCE ABUSE. It appears the patient has been counseled regarding THC, alcohol, tobacco, as well as cocaine. DISPOSITION: The patient is a FULL CODE. Pending patient's symptomatology and diagnostic findings, will re-evaluate in the a.m. Time spent on this followup including assessment, plan, physical examination, patient education, review of records, and family meeting is 25 minutes. DICTATING PHYSICIAN: PEDRO CORCORAN NP [id number] PHY#: [id number] ID: [id number] JOB#: [id number] ACCT: [id number] cc: >
[2018-08-03 13:35] LABS: ANION GAP 10 (5-19); BLOOD UREA NITROGEN 11 mg/dL (7-20); CALCIUM 8.8 mg/dL (8.4-10.2); CARBON DIOXIDE 22 mmol/L (22-30); CHLORIDE 113 mmol/L (98-107); GLUCOSE 86 mg/dL (75-110); POTASSIUM 4.2 mmol/L (3.6-5.0); SODIUM 145.2 mmol/L (137-145)
[2018-08-03] MEDS: NICOTINE 14 MG/24 HR PATCH.TD24 TD SCH (14:05)
[2018-08-03 14:20] LABS: CREATINE KINASE 8665 U/L (55-170)
[2018-08-03] MEDS: PANTOPRAZOLE SODIUM 40 MG VIAL IV SCH (16:30)
--- NOTE | 2018-08-03 18:36 | RADIOLOGY REPORT (SQ) ---
EXAM DESCRIPTION: VENOUS UNILATERAL LOWER COMPLETED DATE/TIME: 08/03/2018 6:29 pm REASON FOR STUDY: RLE edema COMPARISON: None. TECHNIQUE: Dynamic and static turcios scale and color images acquired of the right leg venous system. S elected spectral images acquired with additional compression and augmentation maneuvers. The contrala teral common femoral vein and saphenofemoral junction were also imaged. Images stored on PACS. LIMITATIONS: None. FINDINGS: COMMON FEMORAL: Normal phasicity, compression and augmentation. No visualized echogenic ma terial on turcios scale. No defects on color images. FEMORAL: Normal compression and augmentation. No visualized echogenic material on turcios scale. No defe cts on color images. POPLITEAL: Normal compression, augmentation. No visualized echogenic material on turcios scale. No defec ts on color images. CALF VESSELS: Normal compression, augmentation. No visualized echogenic material on turcios scale. No de fects on color images. GSV and SSV: Normal compression, augmentation. No visualized echogenic material on turcios scale. No def ects on color images. ANY DEEP VENOUS INSUFFICIENCY: Not evaluated. ANY EVIDENCE OF POPLITEAL CYST: No. OTHER: No other significant finding. CONTRALATERAL COMMON FEMORAL VEIN AND SAPHENOFEMORAL JUNCTION: Normal phasicity, compression and augmentation. No visualized echogenic material on turcios scale. No de fects on color images. IMPRESSION: NO EVIDENCE DVT OR SVT IN THE RIGHT LEG. TECHNICAL DOCUMENTATION: JOB ID: [id number] [employer]- All Rights Reserved Reading location - IP/workstation name: [email or web address]
[2018-08-03] MEDS: 1/2 NORMAL SALINE 1,000 ML IV PRN (21:52)
[2018-08-04] MEDS ORDERED: HYDRALAZINE HCL 25 MG TABLET PO ONE (00:45)
[2018-08-04] MEDS: 1/2 NORMAL SALINE 1,000 ML IV PRN ×4 (04:15→23:31)
[2018-08-04] MEDS: HEPARIN SOD (PORCINE) 5,000 UNIT/ML 1 ML SYRINGE SUBCUT SCH ×3 (05:21→21:18)
[2018-08-04 06:32] LABS: ANION GAP 9 (5-19); BLOOD UREA NITROGEN 11 mg/dL (7-20); CALCIUM 8.5 mg/dL (8.4-10.2); CARBON DIOXIDE 23 mmol/L (22-30); CHLORIDE 110 mmol/L (98-107); GLUCOSE 77 mg/dL (75-110); POTASSIUM 3.7 mmol/L (3.6-5.0); SODIUM 141.8 mmol/L (137-145)
[2018-08-04 06:50] LABS: CREATINE KINASE 6460 U/L (55-170)
[2018-08-04] MEDS: NICOTINE 14 MG/24 HR PATCH.TD24 TD SCH (09:55)
[2018-08-04] MEDS: ACETAMINOPHEN 325 MG TABLET PO PRN (10:06)
[2018-08-04] MEDS ORDERED: ONDANSETRON HCL INJ/PF 4 MG/2 ML SDV IV PRN (15:00)
--- NOTE | 2018-08-04 15:56 | PROGRESS NOTE E ---
Progress Note NAME: UMU CARDENAS : 1990 AGE: 27Y DATE: 08/04/2018 ROOM: 404 SUBJECTIVE: The patient is lying in bed. He states he feels okay today. He has had some tightness in his legs. He denies any nausea, vomiting, diarrhea. No shortness of breath, dizziness, or chest pain. No fevers, chills. The patient has been afebrile. Blood pressure has been in a good range. The patient does not voice any other concerns at this time. REVIEW OF SYSTEMS: Rest of review of systems negative. MEDICATIONS: Medications have been reviewed. OBJECTIVE: GENERAL: The patient is a 27-year-old -[place] male who is awake, alert, he is oriented to person, place, time, and situation. He is verbal, conversational, does not appear to be in any acute distress. VITAL SIGNS: Temperature is 98.5, pulse 47, respirations 20, blood pressure is 151/93, oxygen saturation is 100% on room air. SKIN: Warm and dry. No rash. Not diaphoretic. HEENT: Pupils equal, round, and reactive to light and accommodation. Conjunctiva pink. There is no evidence of JVP. CARDIOVASCULAR SYSTEM: Heart is regular. There is no rub. No murmur. CHEST: Clear, symmetrical, unlabored. ABDOMEN: Soft, nontender, nondistended. BACK: No CVA tenderness. EXTREMITIES: No clubbing, cyanosis, or edema. PSYCHIATRIC: Appropriate affect. Pleasant mood. DIAGNOSTICS: Lab values are as follows: Hematology obtained on 08/02/2018: WBCs are 4.5, hemoglobin is 12.5, hematocrit 36.5, platelet count is 134,000. Chemistry obtained on 08/04/2018: Sodium is 141, potassium 4.0, chloride 110, carbon dioxide 22, BUN 11, creatinine 0.69, glucose 77, calcium is 8.5, magnesium is 1.7, CK is 64/60. IMPRESSION AND PLAN: 1. RHABDOMYOLYSIS. Will continue to hydrate. Repeat CK in the a.m. 2. ACUTE KIDNEY INJURY SECONDARY TO NUMBER 1 WELL COCAINE ABUSE. Will continue to aggressively hydrate and follow. 3. COCAINE TOXICITY. Which may have contributed to his renal dysfunction, possible infarction. He does appear to be making a recovery though. We will continue to monitor patient's creatinine and aggressively hydrate. He is making excellent urine output. 4. TOBACCO DEPENDENCY. Will continue p.r.n. nicotine patch. 5. SUBSTANCE ABUSE. The patient was counseled regarding THC, alcohol, tobacco, as well as cocaine. DISPOSITION: The patient is a FULL CODE. Pending patient's symptomatology and diagnostic findings, will re-evaluate in the a.m. Time spent on this followup including assessment, plan, physical examination, patient education, review of records, and family meeting is 25 minutes. DICTATING PHYSICIAN: PEDRO CORCORAN NP [id number] PHY#: [id number] ID: [id number] JOB#: [id number] ACCT: [id number] cc: > MTDD
[2018-08-05] MEDS: HEPARIN SOD (PORCINE) 5,000 UNIT/ML 1 ML SYRINGE SUBCUT SCH ×3 (05:04→22:06)
[2018-08-05 05:22] LABS: ANION GAP 10 (5-19); BLOOD UREA NITROGEN 9 mg/dL (7-20); CALCIUM 8.7 mg/dL (8.4-10.2); CARBON DIOXIDE 25 mmol/L (22-30); CHLORIDE 110 mmol/L (98-107); GLUCOSE 86 mg/dL (75-110); SODIUM 144.6 mmol/L (137-145)
[2018-08-05 05:54] LABS: CREATINE KINASE 4548 U/L (55-170); POTASSIUM 3.9 mmol/L (3.6-5.0)
[2018-08-05] MEDS: 1/2 NORMAL SALINE 1,000 ML IV PRN ×2 (06:50→13:51)
--- NOTE | 2018-08-05 09:47 | PROGRESS NOTE E ---
Progress Note NAME: UMU CARDENAS : 1990 AGE: 27Y DATE: 08/05/2018 ROOM: 404 SUBJECTIVE: The patient is currently sitting in bed. He states that he feels okay. The patient has had no episodes of vomiting nor diarrhea. He has been afebrile. His blood pressures have been in a much more acceptable range. The patient's goal blood pressure at this point is a systolic of 150, and the patient does not voice any other concerns at this time. REVIEW OF SYSTEMS: Rest of review of systems negative. MEDICATIONS: Medications have been reviewed. OBJECTIVE: GENERAL: The patient is a 27-year-old -[place] male who is awake, alert, and oriented to person, place, time, and situation. He is verbal, not too conversational, though, does not appear to be distressed. VITAL SIGNS: Temperature is 98.5, pulse 50, respirations 18, blood pressure 127/82, oxygen saturation is 100% on room air. SKIN: Warm, dry. No rash. Not diaphoretic. HEENT: Pupils are reactive. Conjunctiva is pink. There is no evidence of JVP. CARDIOVASCULAR SYSTEM: Heart is regular. CHEST: Symmetrical, unlabored, clear. ABDOMEN: Nondistended. EXTREMITIES: No edema. PSYCHIATRIC: The patient does have a flat affect. DIAGNOSTICS: Lab values are as follows: Hematology obtained on 08/02/2018: WBCs are 4.5, hemoglobin is 12.5, hematocrit is 36.5, platelet count is 134,000. Chemistry obtained on 08/05/2018: Sodium is 144, potassium 3.9, chloride is 110, carbon dioxide 25, BUN 9, creatinine is 1.42, glucose 86, calcium is 8.7, magnesium is 1.6. CK is 4548. IMPRESSION AND PLAN: 1. RHABDOMYOLYSIS. Continue to hydrate. Repeat CK, creatinine in the a.m. 2. ACUTE KIDNEY INJURY SECONDARY TO NUMBER 1 WELL COCAINE ABUSE. Will continue aggressive hydration and follow chemistries. 3. COCAINE TOXICITY. MOST LIKELY, THIS CONTRIBUTED WITH HIS RENAL DYSFUNCTION, POSSIBLE RENAL INFARCTION, APPEARS TO BE MAKING A RECOVER, THOUGH. Will monitor. He is making excellent urine output. 4. TOBACCO DEPENDENCY. Continue p.r.n. nicotine patch. 5. SUBSTANCE ABUSE. The patient was counseled regarding THC, alcohol, tobacco, as well as cocaine abuse. DISPOSITION: The patient is a FULL CODE. Pending patient's symptomatology and diagnostic findings, will re-evaluate in the a.m. for discharge. Time spent on this followup including assessment, plan, physical examination, patient education, and review of records is 20 minutes. DICTATING PHYSICIAN: PEDRO CORCORAN NP [id number] PHY#: [id number] ID: [id number] JOB#: [id number] ACCT: [id number] cc: >
[2018-08-05] MEDS: NICOTINE 14 MG/24 HR PATCH.TD24 TD SCH (10:54)
[2018-08-06] MEDS: 1/2 NORMAL SALINE 1,000 ML IV PRN ×3 (00:07→09:42)
[2018-08-06 05:34] LABS: ANION GAP 10 (5-19); BLOOD UREA NITROGEN 7 mg/dL (7-20); CALCIUM 8.4 mg/dL (8.4-10.2); CARBON DIOXIDE 27 mmol/L (22-30); CHLORIDE 107 mmol/L (98-107); GLUCOSE 84 mg/dL (75-110); POTASSIUM 3.7 mmol/L (3.6-5.0); SODIUM 143.5 mmol/L (137-145)
[2018-08-06] MEDS: HEPARIN SOD (PORCINE) 5,000 UNIT/ML 1 ML SYRINGE SUBCUT SCH (05:45)
[2018-08-06 05:58] LABS: CREATINE KINASE 2063 U/L (55-170)
[2018-08-06] MEDS: NICOTINE 14 MG/24 HR PATCH.TD24 TD SCH (10:27)
[2018-08-06 12:23] VITALS: BP 132/78
--- NOTE | 2018-08-07 19:51 | DISCHARGE SUMMARY E ---
Discharge Summary NAME: UMU CARDENAS : 1990 AGE: 27Y ADMITTED: 08/01/2018 DISCHARGED: 08/06/2018 CODE STATUS: Full code. PRIMARY CARE PROVIDER: He will be referred to the [facility]. DISCHARGE DIAGNOSES: 1. Rhabdomyolysis. 2. Cocaine toxicity. 3. Acute kidney injury secondary to the above. 4. Tobacco dependency. 5. Substance abuse. 6. Possible hypertension. DISCHARGE MEDICATIONS: None. ALLERGIES: No known drug allergies. ACTIVITY: As tolerated. DIET: As tolerated, continue to consume plenty of fluids. CONDITION: Good. DIAGNOSTICS: Lab values are as follows - Hematology obtained on 08/02/2018; WBC is 4.5, hemoglobin is 12.5, hematocrit is 36.5, platelet count is 134,000. Chemistry obtained on 08/06/2018; sodium is 142, potassium 3.7, chloride is 107, carbon dioxide 27, BUN 7, creatinine is 1.28, glucose 84, calcium is 8.4, magnesium is 1.5. CK is 2063. Total bilirubin is 1.1, AST 43, alt 20, alk-phos 55, total protein 6.2, albumin 3.9. Lipase is 39.1. Urinalysis obtained on 07/31/2018; color straw, appears clear, pH 6.0, specific gravity is 1.004, protein 100, glucose negative, ketones negative, glucose 1, nitrite negative, bilirubin negative, urobilinogen is negative, WBC 1, RBC 1, casts 5, mucus rare, creatinine is 42.6, sodium 54, total protein is 74.2, ascorbic acid is negative. Toxicology obtained on 07/31/2018; cocaine is positive. Microbiology; urine culture obtained on 07/31/2018 reveals no growth. Venous Doppler of the right lower extremity reveals no evidence of DVT or SVT in either leg. PHYSICAL EXAMINATION: GENERAL: On examination the patient is a well-developed, well-nourished, 27-year-old -[place] male who is awake, alert, and oriented to person, place, time, and situation. He is verbal, conversational, ambulatory. He does not appear to be in any acute distress. VITAL SIGNS: Temperature is 98.8, pulse 58, respirations 15, blood pressure is 132/78, oxygen saturation is 99% on room air. SKIN: Warm and dry. No rash. He is not diaphoretic. HEENT: Pupils equal, round, reactive to light and accommodation. Conjunctivae are pink. There is no evidence of JVP. CARDIOVASCULAR: Heart is regular. There is no murmur or rub. CHEST: Clear, symmetrical, unlabored. ABDOMEN: Soft, nontender, nondistended. BACK: No CVA tenderness, no sacral edema. HISTORY OF PRESENT ILLNESS: The patient is a 27-year-old -[place] male with no significant past medical history. The patient presented to the emergency department with a chief complaint of nausea, vomiting which began 12 hours prior to presentation. The patient felt well the afternoon prior with no sick contacts, no suspicious foods. At some point the patient did use crack cocaine. The patient reported that he some emesis when standing and was unable to tolerate fluids at the time. The patient reported subjective fevers, but did not check his temperature. The patient reported some right lower back pain. The patient presented to the emergency department with a white count of 13.7 and acute kidney injury with a creatinine of 1.94 and the patient was referred to the hospitalist for admission and management. HOSPITAL COURSE: The patient was admitted to continuous telemetry unit. The patient was found to be in rhabdomyolysis and was aggressively hydrated. The patient's CK did initially rise as expected and peaked at 8665 and has trended down to 2063. The patient's creatinine trended up, initially it was 1.94, it trended up to 3.21 which was his peak, and is now back to 1.28 which is back to the patient's baseline. The rhabdo was felt to be related to most likely cocaine use. The patient has been counseled regarding this. The patient has appropriate urine output, symptoms have completely resolved, and he is eager for discharge. At times the patient was noted to be somewhat hypertensive with a peak blood pressure systolically in the 150s, however, at the time of discharge the patient's systolic blood pressure is found to be in the 130s and I have advised the patient to follow up at the [facility] for outpatient blood pressure mgmt and monitoring. DISCHARGE PLAN: The patient is to follow with the [facility] within 1-2 weeks for hospital follow up. TIME SPENT: On this discharge including assessment and plan, physical examination, patient education, review of record, family meeting is 25 minutes. DICTATING PHYSICIAN: PEDRO CORCORAN NP [id number] PHY#: [id number] ID: [id number] JOB#: [id number] ACCT: [id number] cc:AUBREE WING M.D. PEDRO CORCORAN NP >
== END 2018-08-06 12:00 | disposition home or self-care (01) | DRG 917 ==
LOC: ER 07:57 → INTOOBSV 13:59 → EH 13:59 → 2N 15:50 → 4N 18:14 → OBSVTOIN 08-01 15:09
PROVIDERS: ADMIT Internal Medicine; ATTEND Internal Medicine
PROC: 3E0F73Z Introduction of Anti-inflammatory into Respiratory Tract, Via Natural or Artificial Opening (ICD-10-PCS; principal; 2018-07-31)
PROC: 3E02340 Introduction of Influenza Vaccine into Muscle, Percutaneous Approach (ICD-10-PCS; 2018-08-06)
DX: T40.5X1A Poisoning by cocaine, accidental (unintentional), initial encounter (principal); N17.0 Acute kidney failure with tubular necrosis; M62.82 Rhabdomyolysis; F17.210 Nicotine dependence, cigarettes, uncomplicated; R19.7 Diarrhea, unspecified; R31.9 Hematuria, unspecified; Z23 Encounter for immunization
CPT/HCPCS: 36415; 74177; 80048; 80053; 80307; 81001; 82550; 82570; 83690; 83735; 84156; 84300; 85025; 85027; 87086; 90471; 90686; 93971; 96361; 96374; 96375; 99285; G0008; G0378; J1644; J1885; J2405; J2765; J7030; S0164

== ENCOUNTER 2020-05-12 18:29 | Emergency (ER) | payer SELFPAY ==
[2020-05-12] MEDS ORDERED: NORMAL SALINE 1000 ML 1,000 ML IV ONE ×2 (18:57→21:24)
--- NOTE | 2020-05-12 18:59 | ER Document Report ---
ED Medical Screen (RME) - General Chief Complaint: Chest Pain Stated Complaint: CHEST PAIN,SHAKING Time Seen by Provider: 05/12/20 18:52 Mode of Arrival: Wheelchair Information source: Patient Notes: 29-year-old male presented to ED for complaint of chest pain shaking feeling overheated. He states he went to the plasma center and gave plasma and then went home and drank a little bit of water but not eat anything and did not drink with a little bit of water. He states he has felt shaky and had chest pain and feeling horrible ever since. I did instruct him that whenever you give plasma use was to eat and drink right away. He states he does smoke 2 cigarettes a day does not drink or do any drugs. He states he does not have any past medical history. We will get blood urine chest x-ray EKG is been done and will give a liter of fluids. I have greeted and performed a rapid initial assessment of this patient. A comprehensive ED assessment and evaluation of the patient, analysis of test results and completion of medical decision making process will be conducted by an additional ED providers. TRAVEL OUTSIDE OF THE [place] IN LAST 30 DAYS: No - Related Data Allergies/Adverse Reactions: No Known Allergies Allergy (Verified 07/31/18 08:00) Past Medical History - Social History Frequency of alcohol use: None Drug Abuse: None Renal/ Medical History: Denies: Hx Peritoneal Dialysis Physical Exam - Vital signs Vitals: Temp Pulse Resp BP Pulse Ox 98.5 F 79 18 103/65 100 05/12/20 18:52 05/12/20 18:52 05/12/20 18:52 05/12/20 18:52 05/12/20 18:52 Course - Vital Signs Vital signs: Temp Pulse Resp BP Pulse Ox 98.5 F 79 18 103/65 100 05/12/20 18:52 05/12/20 18:52 05/12/20 18:52 05/12/20 18:52 05/12/20 18:52
[2020-05-12 19:57] LABS: ABSOLUTE LYMPHOCYTES (AUTO) 1.3 10^3/uL (0.5-4.7); ABSOLUTE MONOCYTES (AUTO) 0.4 10^3/uL (0.1-1.4); ABSOLUTE NEUT (AUTO) 4.7 10^3/uL (1.7-8.2); BASOPHILS % (AUTO) 0.6 % (0-2); EOSINOPHILS % (AUTO) 0.5 % (0-6); HEMOGLOBIN 16.4 g/dL (13.5-17.0); LYMPHOCYTES % (AUTO) 19.5 % (13-45); MEAN CORPUSCULAR HEMOGLOBIN 33.7 pg (27.0-33.4); MEAN CORPUSCULAR HGB CONC 34.1 g/dL (32.0-36.0); MEAN CORPUSCULAR VOLUME 99 fl (80-97); MONOCYTES % (AUTO) 6.6 % (3-13); PLATELET COUNT 206 10^3/uL (150-450); RED BLOOD COUNT 4.86 10^6/uL (4.35-5.55); RED CELL DISTRIBUTION WIDTH 14.3 % (11.5-14.0); SEGMENTED NEUTROPHILS % (AUTO) 72.8 % (42-78); TOTAL CELLS COUNTED % (AUTO) 100 %; WHITE BLOOD COUNT 6.5 10^3/uL (4.0-10.5)
[2020-05-12 20:07] LABS: ALBUMIN 3.3 g/dL (3.5-5.0); ALKALINE PHOSPHATASE 35 U/L (38-126); ANION GAP 5 (5-19); ASPARTATE AMINO TRANSFERASE 21 U/L (17-59); BLOOD UREA NITROGEN 11 mg/dL (7-20); CALCIUM 8.1 mg/dL (8.4-10.2); CARBON DIOXIDE 24 mmol/L (22-30); CHLORIDE 106 mmol/L (98-107); CREATINE KINASE 93 U/L (55-170); GLUCOSE 171 mg/dL (75-110); POTASSIUM 3.6 mmol/L (3.6-5.0); TOTAL PROTEIN 5.7 g/dL (6.3-8.2)
[2020-05-12 20:22] LABS: NT PRO BNP 30 pg/mL (<125)
--- NOTE | 2020-05-12 20:31 | RADIOLOGY REPORT (SQ) ---
EXAM DESCRIPTION: X-ray, two views of the chest CLINICAL HISTORY: 29 years Male, chest pain chest pain after Biotest donation. COMPARISON: Two views of the chest August 12, 2017 FINDINGS: Lungs: Lungs are clear. No pneumonia or edema. No pneumothorax or pleural effusion. Mediastinum: Cardiac and mediastinal silhouette are normal. Bones: Osseous structures are normal. IMPRESSION: No acute process. No significant interval change.
--- NOTE | 2020-05-12 20:35 | ER Document Report ---
ED General - General Chief Complaint: Chest Pain Stated Complaint: CHEST PAIN,SHAKING Time Seen by Provider: 05/12/20 18:52 Mode of Arrival: Wheelchair Notes: Patient is a 29-year-old male that comes emergency department for chief complaint of feeling weak, feeling lightheaded, and feeling like he was going to pass out. He states that he felt a sharp cramping sensation in the top of his abdomen and chest as well. He states that symptoms started just after he had completed donating plasma earlier today. He states he did not eat or drink anything all day until afterwards he ate a honey bun thinking his blood sugar was low. Patient smokes, denies regular alcohol, denies recreational drugs. He takes no daily medications. Past medical history of rhabdomyolysis once, denies medical history otherwise. Patient is already started IV fluids and states he already feels significantly improved. TRAVEL OUTSIDE OF THE [place] IN LAST 30 DAYS: No - Related Data Allergies/Adverse Reactions: No Known Allergies Allergy (Verified 07/31/18 08:00) Past Medical History - General Information source: Patient - Social History Smoking Status: Current Every Day Smoker Frequency of alcohol use: None Drug Abuse: None Lives with: Family Family History: Reviewed & Not Pertinent Renal/ Medical History: Denies: Hx Peritoneal Dialysis - Immunizations Immunizations up to date: Yes Hx Diphtheria, Pertussis, Tetanus Vaccination: Yes Review of Systems - Review of Systems Constitutional: See HPI EENT: No symptoms reported Cardiovascular: See HPI Respiratory: No symptoms reported Gastrointestinal: No symptoms reported Genitourinary: No symptoms reported Male Genitourinary: No symptoms reported Musculoskeletal: See HPI Skin: No symptoms reported Hematologic/Lymphatic: No symptoms reported Neurological/Psychological: No symptoms reported Physical Exam - Vital signs Vitals: Temp Pulse Resp BP Pulse Ox 98.5 F 79 18 103/65 100 05/12/20 18:52 05/12/20 18:52 05/12/20 18:52 05/12/20 18:52 05/12/20 18:52 - Notes Notes: GENERAL: Alert, interacts well. No acute distress. HEAD: Normocephalic, atraumatic. EYES: Pupils equal, round, and reactive to light. Extraocular movements intact. ENT: Oral mucosa moist, tongue midline. Oropharynx unremarkable. Airway patent. NECK: Full range of motion. Supple. Trachea midline. No lymphadenopathy. LUNGS: Clear to auscultation bilaterally, no wheezes, rales, or rhonchi. No respiratory distress. Non-tender chest wall. HEART: Regular rate and rhythm. No murmur ABDOMEN: Soft, non-tender. Non-distended. EXTREMITIES: Moves all 4 extremities spontaneously. No edema, normal radial and dorsalis pedis pulses bilaterally. No cyanosis. BACK: no cervical, thoracic, lumbar midline tenderness. No saddle anesthesia, normal distal neurovascular exam. Moves all extremities in full range of motion. NEUROLOGICAL: Alert and oriented x3. Normal speech. Cranial nerves II through X II grossly intact. Strength 5/5 in all extremities. PSYCH: Normal affect, normal mood. SKIN: Warm, dry, normal turgor. No rashes or lesions noted. Course - Re-evaluation Re-evalutation: Patient asymptomatic after IV fluids. CBC unremarkable, chemistry shows evidence of concentration with elevated blood glucose and calcium, CK is not concerning, troponin is negative, chest x-ray unremarkable. EKG nonspecific, right bundle branch block was already present previously, patient with only generalized cramping pain over the body in addition to the near syncopal episode that he had after the plasma donation. I feel the clinical picture is most likely secondary to vasovagal symptoms after donating plasma and not eating or drinking during the day. Patient reevaluated, stood up, still felt slightly lightheaded, therefore he was given another bag of fluids. After this symptoms completely resolved. He is eating without difficulty, he urinated without difficulty. Discussed with patient and mother. Patient will be discharged with instructions to better prepare before and after with plasma donation and to return if he wo rsens including passing out, chest pain, difficulty breathing, or any other concerning symptoms. They state appreciation and agreement. - Vital Signs Vital signs: Temp Pulse Resp BP Pulse Ox 98.5 F 79 13 113/67 98 05/12/20 18:52 05/12/20 18:52 05/12/20 23:01 05/12/20 23:00 05/12/20 23:01 - Laboratory Result Diagrams: 05/12/20 19:30 05/12/20 19:30 Laboratory results interpreted by me: 05/12/20 05/12/20 19:30 19:30 MCV 99 H MCH 33.7 H RDW 14.3 H Sodium 135.2 L Glucose 171 H Calcium 8.1 L Alkaline Phosphatase 35 L Total Protein 5.7 L Albumin 3.3 L - EKG Interpretation by Me Additional EKG results interpreted by me: EKG shows sinus rhythm at a rate of 80, QTc 425, normal axis. Right bundle branch block is present. Borderline T waves in anterior and lateral leads with no ST segment changes in consecutive leads. Discharge - Discharge Clinical Impression: Near syncope, Weakness, Muscle cramping, Dehydration Condition: Stable Disposition: HOME, SELF-CARE Additional Instructions: Your work-up and improvement with treatment are most consistent with dehydration and near syncope (nearly passing out) related to your plasma donation. Rest, continue to hydrate, improve your eating and hydration especially on plasma donation days. Follow-up with primary care. Return if you worsen including if you develop chest pain, if you pass out, if you have difficulty breathing, vomiting, or any other concerning or worsening symptoms. Forms: Return to Work
--- NOTE | 2020-05-12 20:37 | EKG REPORT ---
SEVERITY:- ABNORMAL ECG - SINUS RHYTHM PROBABLE LEFT ATRIAL ABNORMALITY NONSPECIFIC DIFFUSE-T INVERSIONS. RBBB : Confirmed by: Gonzalo Gaston MD 12-May-2020 20:37:13
[2020-05-12 20:40] LABS: TROPONIN I < 0.012 ng/mL
[2020-05-12 23:34] VITALS: BP 113/67
== END 2020-05-12 23:40 | disposition home or self-care (01) ==
LOC: ER 18:29
DX: E86.0 Dehydration (principal); R55 Syncope and collapse; R53.1 Weakness; R25.2 Cramp and spasm; R42 Dizziness and giddiness; R10.10 Upper abdominal pain, unspecified; F17.200 Nicotine dependence, unspecified, uncomplicated; R73.9 Hyperglycemia, unspecified; I45.10 Unspecified right bundle-branch block
CPT/HCPCS: 93005; 99285; 96360; 96361; 36415; 82550; 85025; 80053; 84484; 83880; 71046; 93010; J7030